=== PATIENT | male | born 1940 | race Caucasian/White ===

== ENCOUNTER 2019-01-17 11:33 | Observation (INO) | payer OTHER, MEDICARE ==
--- NOTE | 2019-01-19 06:22 | PDHPUP ---
History & Physical Update H&P update statement: This history and physical update is based on an assessment of the patient which was completed after admission or registration (within 24 hours), but prior to the surgery/procedure. H&P update: H&P reviewed & patient examined, no change in patient's condition since H&P completed
[2019-01-19] MEDS ORDERED: LISINOPRIL 20 MG TAB PO SCH (09:00)
[2019-01-19] MEDS ORDERED: GABAPENTIN 300 MG CAP PO SCH (09:00)
[2019-01-19] MEDS ORDERED: HYDROCHLOROTHIAZIDE 25 MG TAB PO SCH (09:00)
[2019-01-19] MEDS ORDERED: NAPROXEN SODIUM 220 MG TAB PO SCH (09:00)
[2019-01-19] MEDS ORDERED: amLODIPine BESYLATE 5 MG TAB PO SCH (09:00)
[2019-01-19] MEDS ORDERED: METOPROLOL SUCCINATE XR 50 MG TAB PO SCH (09:00)
[2019-01-19] MEDS ORDERED: ACETAMINOPHEN 500 MG TAB PO ONE (10:27)
[2019-01-19] MEDS ORDERED: GABAPENTIN 300 MG CAP PO ONE (10:27)
[2019-01-19] MEDS ORDERED: ceFAZolin 2 GM/DEXTROSE 100 ML IV ONE (10:27)
[2019-01-19] MEDS ORDERED: LIDOCAINE 1% 2 ML INJ ID PRN (10:28)
[2019-01-19] MEDS ORDERED: LR 1,000 ML IV ONE (10:28)
--- NOTE | 2019-01-19 11:01 | PDANEPAE ---
ANE Past Medical History - Cardiovascular History Hx Hypertension: Yes Hx Arrhythmias: No Hx Chest Pain: No Hx Coronary Artery / Peripheral Vascular Disease: No Hx CHF / Valvular Disease: No Hx Palpitations: No - Pulmonary History Hx COPD: No Hx Asthma/Reactive Airway Disease: No Hx Recent Upper Respiratory Infection: No Hx Oxygen in Use at Home: No Hx Sleep Apnea: No Sleep Apnea Screening Result - Last Documented: Positive - Neurologic History Hx Cerebrovascular Accident: No Hx Seizures: No Hx Dementia: No - Endocrine History Hx Diabetes: No Hypothyroid: No Hyperthyroid: No Obesity: no - Renal History Hx Renal Disorders: No - Liver History Hx Hepatic Disorders: No - Neurological & Psychiatric Hx Hx Neurological and Psychiatric Disorders: Yes Neurological / Psychiatric History Comment: SHARP STABBING PAIN DOWN LEGS - Cancer History Hx Cancer: Yes Cancer History Comment: PROSTATE CA - Congenital Disorder History Hx Congenital Disorders: No - GI History GERD: no Hx Gastrointestinal Disorders: No - Other Health History Other Health History: NONE - Chronic Pain History Chronic Pain: No - Surgical History Prior Surgeries: LTKA. RADIOACTIVE SEEDS ANE Review of Systems Review of Systems: - Exercise capacity Exercise capacity: >=4 METS, limited by disability METS (RN): 4 METS ANE Patient History - Allergies Allergies/Adverse Reactions: No Known Allergies Allergy (Verified 01/03/19 10:49) - Home Medications Home Medications: Atorvastatin Calcium [Lipitor 20 mg (*)] 20 mg PO DAILY 01/03/19 [Last Taken ] Gabapentin [Neurontin 300 MG (*)] 300 mg PO TID 01/03/19 [Last Taken 01/19/19 05 :00] Herbals/Supplements -Info Only 1 ea PO DAILY 01/03/19 [Last Taken 01/13/19] Lisinopril/Hydrochlorothiazide [Zestoretic 20-25 mg Tablet] 1 each PO DAILY 05/16 [Last Taken 01/19/19 07:00] Metoprolol Succinate Xr [Toprol Xl 50 mg (*)] 50 mg PO DAILY 01/03/19 [Last Taken 01/19/19 07:00] Naproxen Sodium [Aleve 220 MG (*)] 220 mg PO TID 01/03/19 [Last Taken 01/19/19 05:00] [place]-3 Fatty Acids [Fish Oil 1000 mg (*)] 1,000 mg PO DAILY 01/03/19 [Last Taken 01/13/19] amLODIPine BESYLATE [Norvasc 5 mg (*)] 5 mg PO DAILY 01/03/19 [Last Taken 07:00] clonIDINE [Catapres (*)] 0.1 mg PO DAILY 01/03/19 [Last Taken 01/19/19 07:00] - Anes Hx Anes Hx: no prior problems - Smoking Hx Smoking Status: Never smoked Marijuana use: No - Alcohol Use Alcohol Use: Rarely - Family Anes Hx Family Anes Hx: neg - N/A Family Hx Anesthesia Complications: none ANE Labs/Vital Signs - Vital Signs Height: 182.88 cm Weight: 83.915 kg ANE Physical Exam - Airway Neck exam: decreased ROM Mallampati Score: Class 2 Mouth exam: normal dental/mouth exam - Pulmonary Pulmonary: no respiratory distress, no rales or rhonchi, clear to auscultation - Cardiovascular Cardiovascular: regular rate and rhythym - ASA Status ASA Status: III ANE Anesthesia Plan Anesthesia Plan: general endotracheal anesthesia Total IV Anesthesia: No
[2019-01-19] MEDS ORDERED: BUPIVACAINE/EPI 0.25% 30 ML SDV ONE (11:18)
[2019-01-19] MEDS ORDERED: CHLORHEXIDINE GLUC HIBICLENS 118 ML BTL TP ONE (11:18)
[2019-01-19] MEDS ORDERED: THROMBIN (BOVINE) 5,000 UNIT VIAL TP ONE (11:18)
[2019-01-19] MEDS ORDERED: BACITRACIN 50,000 UNITS/10 ML SYR IRR ONE (11:19)
[2019-01-19] MEDS ORDERED: ONDANSETRON DISINTEGRATING 4 MG TAB PO PRN (11:55)
[2019-01-19] MEDS ORDERED: diphenhydrAMINE 25 MG CAP PO PRN (11:55)
[2019-01-19] MEDS ORDERED: oxyCODONE IR 5 MG TAB PO PRN (11:55)
[2019-01-19] MEDS ORDERED: MAGNESIUM HYDROXIDE 30 ML UDCUP PO PRN (11:55)
[2019-01-19] MEDS ORDERED: LACTULOSE 20 GM/30 ML UDCUP PO PRN (11:55)
[2019-01-19] MEDS ORDERED: HYDROmorphONE/DILAUDID 1 MG/ML INJ IVP PRN (11:55)
[2019-01-19] MEDS ORDERED: ONDANSETRON 4 MG/2 ML VIAL IVP PRN ×2 (11:55→13:48)
[2019-01-19] MEDS ORDERED: BISACODYL 10 MG SUPP PR PRN (11:55)
[2019-01-19] MEDS ORDERED: METHOCARBAMOL 750 MG TAB PO PRN (11:55)
[2019-01-19] MEDS ORDERED: POLYETHYLENE GLYCOL 3350 17 GM PKT PO PRN (11:55)
[2019-01-19] MEDS ORDERED: NS 1,000 ML IV SCH (12:00)
[2019-01-19] MEDS ORDERED: PROPOFOL 200 MG/20 ML VIAL ONE (12:21)
[2019-01-19] MEDS ORDERED: ONDANSETRON 4 MG/2 ML VIAL ONE (12:21)
[2019-01-19] MEDS ORDERED: fentaNYL 100 MCG/2 ML INJ ONE (12:21)
[2019-01-19] MEDS ORDERED: DEXAMETHASONE 4 MG/ML VIAL ONE (12:23)
[2019-01-19] MEDS ORDERED: LIDOCAINE 2% 5 ML SDV ONE (12:23)
[2019-01-19] MEDS ORDERED: PHENYLEPHRINE HCL 100 MCG/ML SYR ONE ×2 (12:44→13:16)
[2019-01-19] MEDS ORDERED: ePHEDrine SULFATE 25 MG/5 ML SYR ONE ×2 (12:57→13:09)
[2019-01-19] MEDS ORDERED: KETOROLAC 30 MG/1 ML SDV ONE (13:18)
[2019-01-19] MEDS ORDERED: PHENYLEPHRINE 10 MG/ML SDV ONE ×2 (13:41→14:04)
[2019-01-19] MEDS ORDERED: HYDROCODONE/APAP 5/325 TAB PO PRN (13:48)
[2019-01-19] MEDS ORDERED: fentaNYL 100 MCG/2 ML INJ IVP PRN (13:48)
[2019-01-19] MEDS ORDERED: PROMETHAZINE HCL 25 MG/ML INJ IVP PRN (13:48)
[2019-01-19] MEDS ORDERED: NALOXONE HCL 0.4 MG/ML INJ IVP PRN (13:48)
[2019-01-19] MEDS ORDERED: LR 500 ML IV PRN (13:48)
[2019-01-19] MEDS ORDERED: DIAZEPAM 10 MG/2 ML SYR IVP PRN (13:48)
[2019-01-19] MEDS ORDERED: PHENYLEPHRINE HCL 100 MCG/ML SYR IVP PRN (13:48)
[2019-01-19] MEDS ORDERED: ACETAMINOPHEN 500 MG TAB PO PRN (13:48)
[2019-01-19] MEDS ORDERED: ceFAZolin 2 GM/DEXTROSE 100 ML IV SCH ×2 (14:00→19:00)
[2019-01-19] MEDS ORDERED: PROPOFOL/EMULSION 500 MG/50 ML BOTTLE IV ONE (14:07)
[2019-01-19] MEDS ORDERED: REMIFENTANIL HCL 1 MG VIAL ONE (14:07)
--- NOTE | 2019-01-19 15:29 | POSTOPPROG ---
Post Op Note Date of Operation: 01/19/19 Surgeon: Afshin Chance Relay Dispatcher: ROGER Rodriguez Anesthesiologist: Tacos Anesthesia: GET(General Endotracheal), Local (Specify) Pre-op Diagnosis: Lumbar stenosis L3-L5 Post-op Diagnosis: Lumbar stenosis L3-L5 Indication: BLE pain, LBP Procedure: L3-L5 laminectomy Findings: see op report Inf/Abcess present in the surg proc area at time of surgery?: No Depth: Deep Incisional (Fascial) EBL: 100-500 Total fluids administered: see anesthesia record Complications: none Bowel Protocol: Yes Clean Closure Performed: Yes
--- NOTE | 2019-01-19 15:33 | SOAPPROG ---
SOAP Progress Note Assessment/Plan: Post Op Visit: S: Awake and alert. NAD. Pt with expected lower back pain O: AFVSS/PERRLA/EOMI no droop CN 2-12 grossly intact +lt touch 5/5 BUE/BLE = CDI A/P: 78 yo male that is s/p L3-L5 lami -orders in place -call with any questions or concerns -no bending or twisting -take medications as directed -pt seen by Dr Chance -PT/OT in am Objective: Vital Signs Temp Pulse Resp BP Pulse Ox 36.7 C 77 16 125/87 H 95 01/19/19 11:28 01/19/19 11:28 01/19/19 11:28 01/19/19 11:28 01/19/19 11:28 ICD10 Worksheet Patient Problems: Problems Problem Status Onset Lumbar radicular pain Acute Lumbar stenosis Acute - ICD10 Problem Qualifiers (1) Lumbar stenosis Qualifiers: Neurogenic claudication status: with neurogenic claudication Qualified Code (s): M48.062 - Spinal stenosis, lumbar region with neurogenic claudication (2) Lumbar radicular pain
--- NOTE | 2019-01-19 15:38 | POSTANESTH ---
Post Anesthetic Evaluation Cardiovascular Status: Similar to Pre-Op Cond Respiratory Status: Normal, Stable Level of Consciousness/Mental Status: Mildly Sleepy, Arousable Pain Control: Adequate, Prn Tx Ordered Nausea/Vomiting Control: Adequate, Prn Tx Ordered Complications Possibly Related to Anesthesia: None Noted
[2019-01-19] MEDS ORDERED: AMIODARONE HCL 100 ML IV ONE (18:13)
[2019-01-19] MEDS: ACETAMINOPHEN 500 MG TAB PO SCH ×2 (18:26→21:31)
[2019-01-19] MEDS: ATORVASTATIN CALCIUM 20 MG TAB PO SCH (18:26)
[2019-01-19] MEDS: GABAPENTIN 300 MG CAP PO SCH ×2 (18:27→21:31)
[2019-01-19] MEDS: NAPROXEN SODIUM 220 MG TAB PO SCH ×2 (18:27→21:31)
--- NOTE | 2019-01-19 18:43 | GOP ---
[f rep st] OPERATIVE REPORT DATE OF OPERATION: 01/19/2019 SURGEON: Elmo Chance MD NEUROSURGEON: Jonny Chance MD. COSMETIC SALES: Hugo Rodriguez PA-C. PREOPERATIVE DIAGNOSIS: Severe spinal stenosis L3-4, L4-5; disk herniation, L3-4; neurogenic claudic ation; bilateral lumbosacral radiculopathy. POSTOPERATIVE DIAGNOSIS: Severe spinal stenosis L3-4, L4-5; disk herniation, L3-4; neurogenic claudi cation; bilateral lumbosacral radiculopathy. PROCEDURE PERFORMED: An L3-4, L4-5 laminectomy with bilateral medial facetectomies, bilateral recess decompressions, both levels with a microdiskectomy at L3-4 (74041, 44220); microscope. FINDINGS: ESTIMATED BLOOD LOSS: 75 mL. INDICATIONS: The patient is a 78-year-old with terrible pain in his back radiating down both legs, r elatively symmetric, who had an MRI that demonstrated multilevel findings with stenosis at L2-3, L3-4 , L4-5 and really no significant stenosis at L5-S1. He had critical stenosis at L3-4 and a large sub ligamentous disk protrusion there, as well as ligamentum flavum and facet arthropathy. He had severe spinal stenosis at L4-5 as well and a spondylolisthesis there. I suggested a 2-level decompression and the possibility of needing a larger surgery was discussed, but I thought a simple decompression a lone would suffice. The risk of nerve injury and continued symptoms were discussed. He knew there w as a chance surgery would fail to eliminate his discomfort, but he did want to proceed. DESCRIPTION OF PROCEDURE: The patient was taken to the operating room and placed in the supine posit ion. General anesthesia was begun. He was flipped prone onto the [place] frame. Care was taken to p ad all points of contact. His back was sterilely prepped and draped in the usual fashion. We made a 3 cm incision above the L3-4, L4-5 interspace. The subcutaneous tissue was dissected using Bovie ca utery down through the fascia and a subperiosteal dissection was made down to L3-4, L4-5 lamina. A l ocalizing x-ray was taken. We removed the complete L4 spinous process. We removed the inferior L3 s pinous process. The operating microscope was introduced. We completely removed the lamina of L4. W e removed the entire caudal sulma-lamina of L3 with bilateral decompressions at that level, but we pre served the rostral arch of L3. We removed the rostral aspects of the L5 lamina. We worked under the scope to perform bilateral recess and central decompressions. There was absolutely amazingly critic al spinal stenosis at L3-4 and this took considerable time to achieve decompression. We worked our w ay down the lateral gutters of the spinal canal to the midportion of the bilateral L5 pedicles and we decompressed flush with the pedicles and worked our way up above the L4-5 facet joint, undercutting the facet joint and performing a foraminotomy on each side. We then followed the pars interarticular is rostrally to the L4 pedicle and decompressed the L3-4 level. On the right at L4-5, the facet arth ropathy was very stuck to the dura and the dissection was extremely difficult, tedious and time consu mary alice, but we were able to eventually free all this material and get a great decompression. At L3-4, we got a great decompression. We then swept the L3 nerve root medial from the left side and there wa s a large subligamentous disk protrusion that we removed. We were able to squeeze a large amount of disk material out from underneath the anulus and the posterior longitudinal ligament at L3-4. It cam e out like toothpaste. We removed all this material and got a great decompression at that level. We then irrigated the L3-4 disk space with antibiotic saline solution and got several additional pieces of disk out of the disk itself. We then irrigated the entire incision with a large amount of antibi otic saline. We then closed the incision in multiple layers using Vicryl sutures. A running PDS was placed in the skin itself. The patient was reversed from anesthesia, extubated and transferred to [facility] recovery room in stable condition. There were no complications.01/18/2019 COMPLICATIONS: None. /[id number]/MODL
[2019-01-19] MEDS: ceFAZolin 2 GM/DEXTROSE 100 ML IV SCH (21:14)
[2019-01-19] MEDS: SENNOSIDES/DOCUSATE SODIUM TAB PO SCH (21:30)
[2019-01-19] MEDS: FAMOTIDINE 20 MG TAB PO SCH (21:31)
--- NOTE | 2019-01-20 00:19 | GCON ---
[f rep st] CONSULTATION DATE OF CONSULTATION: 01/19/2019 CHIEF COMPLAINT: Abnormal heart rhythm after surgery. HISTORY OF PRESENT ILLNESS: The patient is a 78-year-old man with a history of hypertension, as well as lumbar stenosis and a remote history of prostate cancer, who presented today for lumbar spine maria julio cesar under the care of Dr. Jonny Chance. At the time of his initial evaluation in the hospital, he was noted to be in normal sinus rhythm, but during the course of the operation, the patient developed at rial fibrillation and I was asked to see the patient in consultation because of the development of at rial fibrillation with controlled ventricular response. The patient was being monitored by Dr. Ilene guadarrama. At the time of my evaluation, the patient is asymptomatic and does not have chest pain, pressure, tig htness, shortness of breath, and is lying comfortably flat in the bed without clinical symptoms of co ncern. PAST MEDICAL HISTORY: Significant for: 1. Hypertension. 2. Prostate cancer, status post radioactive seed implant. 3. Lumbar spinal stenosis. 4. History of orthopedic surgeries in the past and a hernia repair. 5. The patient has no prior cardiac history. SOCIAL HISTORY: Pertinent for the fact he worked at [employer] until 1990, is retired since that ti fl. He is active around the house and walks his dog twice a day to a local [place] without clinical sym ptoms of chest pain, pressure, tightness, or shortness of breath. He does not abuse alcohol or illic it drugs. He does not smoke or abuse tobacco products. A 10-point review of systems is reviewed and is otherwise negative. PHYSICAL EXAMINATION: VITAL SIGNS: Blood pressure 119/77, pulse 76 and irregularly irregular, respi rations are 16 and unlabored. Oxygen saturation 97% on 2 L by nasal cannula. HEENT: His eyes revea l that his pupils are equal, round, reactive to light. Extraocular motions intact. His mouth reveal s moist mucous membranes. NECK: Reveals a normal exam without evidence of carotid bruits. HEART: Reveals an irregularly irregular rhythm without an appreciable murmur in the anterior precordium. CAROLINE NGS: He has bilaterally equal breath sounds. He is lying recumbent in the bed, is flat, and without respiratory distress. EXTREMITIES: Warm, dry, well perfused, without significant peripheral edema. DIAGNOSTIC STUDIES: His EKG reveals atrial fibrillation with nonspecific T wave abnormalities and fl attening. There is no evidence of ischemia or an injury pattern on the EKG. LABORATORY STUDIES: Reveal white count of 6.04, H and H of 15.5 and 45.5, a platelet count of 247. Sodium is 137, potassium 4.1, BUN and creatinine of 14 and 0.7, glucose is 95 with a calcium of 9.8. IMPRESSION/PLAN: The patient has paroxysmal and sustained atrial fibrillation without a prior histor y of this same. He is a usual patient of Dr. Garcia in [place], and is on 4 medications for his hype rtension including amlodipine 5 mg p.o. daily, clonidine 0.1 mg daily, hydrochlorothiazide 25 mg joann y, lisinopril 20 mg daily, and metoprolol succinate 50 mg p.o. daily. He is not known to be allergic to other medications. The patient appears at paroxysmal and sustained atrial fibrillation as a colin operative event which is of unclear significance. The patient has never had clinical symptoms sugges tive of prior atrial fibrillation and this is a new diagnosis to him. He has not had a prior cardiac workup, especially in the recent past. Our plan will be to give him a single dose of IV amiodarone and wait 30 minutes. If he has not converted to normal sinus rhythm with that strategy, we would giv e a second dose of the medication to see if this could help him return to normal rhythm overnight. C ertainly, we will want to obtain an echocardiogram in the morning to evaluate the structural function of his heart, as well as rule out valvular heart disease as a potential cause for the patient's atri al fibrillation. Evaluation of his heart size and LV function, as well as LV thickness will also be helpful. The patient should have a blood test with a TSH to evaluate for hypo or hyperthyroidism as a potential contributing factor, although this would be unlikely in the current clinical presentation . I have explained to the patient and his that the usual complication of atrial fibrillation is a risk of stroke. He certainly has risk factors for that with age greater than 75, giving 2 points on the CHADS-VASc score, along with hypertension giving another point, so his CHADS-VASc calculates o ut to be a 3, which usually results in a standard recommendation for full-dose anticoagulation to be given indefinitely in patients with this type of profile who are not at bleeding risk. Unfortunately, the patient has just undergone a back surgery and of course, the use of full-dose anti coagulation would be contraindicated presently because of the risk of a spinal cord hematoma and para lysis related to that problem. I think if he is unable to convert to normal rhythm with IV amiodaron e overnight, we could consider a MAT guided cardioversion to try to get him back in normal rhythm as quickly as possible. I do not think that is indicated this evening given the fact that the patient i s clinically comfortable and is not in heart failure, does not have angina or other problems at the p resent time. /[id number]/MODL
[2019-01-20] MEDS: ceFAZolin 2 GM/DEXTROSE 100 ML IV SCH (05:18)
[2019-01-20] MEDS: ACETAMINOPHEN 500 MG TAB PO SCH ×2 (05:57→14:07)
--- NOTE | 2019-01-20 07:19 | NEUSURGPN ---
Date of Surgery: 01/19/19 Post Op Day: 1 Assessment/Plan: Assessment: 78 yo male that is s/p L3-L5 lami that has post op Afib now Plan: -pt states that he has some lower back pain, his legs feel great -pt is in Afib now and cardiology working on likely will have cardioversion today -orders in place -call with any questions or concerns -no bending or twisting -no lifting more than 10-15 lbs -take medications as directed -pt seen by Dr Chance -PT/OT this am Subjective: Awake and alert. NAD. Eating/drinking and voiding. No f/c/n/v/d. Pt with mild lower back pain. Pt states that legs feel great Objective: AFVSS/PERRLA/EOMI no droop CN 2-12 grossly intact +lt touch 5/5 BUE/BLE = CDI Neuro Check Frequency: per routine Urinary Catheter in Place: No - Physician Discussed Patient with : Robson Patient Seen by : Robson Neurosurgery Physical Exam - Vitals, I&O, Labs I and O 01/19/19 01/20/19 01/21/19 05:59 05:59 05:59 Intake Total 2049 Output Total 50 Balance 1999 Weight 83.915 kg Intake: Oral (ml) 350 IV Intake (ml) 1500 IV Infused (ml) 200 ceFAZolin 2 GM/DEXTROSE 200 100 ml @ 200 mls/hr IV Q8H DON Rx#:[id number] Output: Estimated Blood Loss (ml) 50 Other: Number of Voids Toilet 1 Vital Signs Temp Pulse Resp BP Pulse Ox 36.6 C 93 18 117/75 91 L 01/20/19 04:00 01/20/19 04:00 01/20/19 04:00 01/20/19 04:00 01/20/19 04:00 ICD10 Worksheet Patient Problems: Problems Problem Status Onset Lumbar radicular pain Acute Lumbar stenosis Acute - ICD10 Problem Qualifiers (1) Lumbar stenosis Qualifiers: Neurogenic claudication status: with neurogenic claudication Qualified Code (s): M48.062 - Spinal stenosis, lumbar region with neurogenic claudication (2) Lumbar radicular pain
[2019-01-20] MEDS: ATORVASTATIN CALCIUM 20 MG TAB PO SCH (08:56)
[2019-01-20] MEDS: GABAPENTIN 300 MG CAP PO SCH ×2 (08:57→13:23)
[2019-01-20] MEDS: FAMOTIDINE 20 MG TAB PO SCH (08:57)
[2019-01-20] MEDS: SENNOSIDES/DOCUSATE SODIUM TAB PO SCH (08:57)
[2019-01-20] MEDS: NAPROXEN SODIUM 220 MG TAB PO SCH ×2 (08:58→13:23)
[2019-01-20] MEDS ORDERED: amLODIPine BESYLATE 5 MG TAB PO SCH (09:00)
[2019-01-20] MEDS ORDERED: LISINOPRIL 20 MG TAB PO SCH (09:00)
[2019-01-20] MEDS ORDERED: METOPROLOL SUCCINATE XR 50 MG TAB PO SCH (09:00)
[2019-01-20] MEDS ORDERED: HYDROCHLOROTHIAZIDE 25 MG TAB PO SCH (09:00)
--- NOTE | 2019-01-20 10:27 | CPEKG ---
Test Reason : OPEN Blood Pressure : / mmHG Vent. Rate : 093 BPM Atrial Rate : 149 BPM P-R Int : 162 ms QRS Dur : 099 ms QT Int : 436 ms P-R-T Axes : 000 017 -13 degrees QTc Int : 543 ms Atrial fibrillation Borderline T abnormalities, diffuse leads Borderline prolonged QT interval Confirmed by Roe Hayes ([id number]) on 01/20/2019 10:27:09 AM Referred By: Afshin LE Confirmed By:Roe Hayes
--- NOTE | 2019-01-20 10:32 | PDCARPN ---
Cardiology Progress Note Chief Complaint: atrial fibrillation Assessment/Plan: Assessment:Rubens is a 78-year-old male who presented for a surgery under the care of Dr. Chance and shortly after anesthesia induction the patient went into atrial fibrillation and remained in the rhythm throughout the remainder of the case. Plan: Elective MAT guided cardioversion today as he is currently not an anticoagulation candidate given spine surgery. 01/20/19 10:31 01/20/19 14:20 Subjective: I feel great. Reviewed/Discussed With: family, hospitalist, multidisciplinary team Time Spent with Patient: greater than 25 minutes Time Spent with Patient: Greater than 25 minutes spent on this patients care, greater than 50% of time spent counseling, educating, and coordinating care regarding the above mentioned plan. Objective: Vital Signs (8 Hrs) Temp Pulse Resp BP Pulse Ox 01/20/19 04:00 36.6 C 93 18 117/75 91 L Intake/Output (24 Hrs) 01/19/19 01/20/19 01/21/19 05:59 05:59 05:59 Intake Total 2050 Output Total 50 Balance 1999 Intake: Oral (ml) 350 IV Intake (ml) 1500 IV Infused (ml) 200 ceFAZolin 2 GM/DEXTROSE 200 100 ml @ 200 mls/hr IV Q8H [facility] Rx#:[id number] Output: Estimated Blood Loss (ml) 50 Other: Weight 83.915 kg Number of Voids Toilet 1 EKG: Atrial fibrillation vs left atrial flutter with controlled ventricular response. Telemetry: Atrial fibrillation with controlled response - Physical Exam Constitutional: healthy appearing, no apparent distress Eyes: PERRL, EOMI, anicteric sclera Ears, Nose, Mouth, Throat: moist mucous membranes Cardiovascular: irregularly irregular Respiratory: clear to auscultate bilat Gastrointestinal: normoactive bowel sounds, no tenderness Neurologic: AAOx3 Psychiatric: cooperative, interactive ICD10 Worksheet Patient Problems: Problems Problem Status Onset Lumbar stenosis Acute Lumbar radicular pain Acute
[2019-01-20] MEDS ORDERED: NS 1,000 ML IV ONE (11:04)
[2019-01-20] MEDS ORDERED: ATROPINE SULFATE 1 MG/10 ML SYR IVP ONE (11:04)
--- NOTE | 2019-01-20 15:03 | ECHO ---
[email or web address] [address] Main: [phone] Echocardiography Examination Transthoracic Name: PATT CHRISTIAN MR#: [id number] Study Date: 01/20/2019 Study Time: 08:21 AM Date of : 1940 Age: 78 year(s) Height: 182.9 cm (72 in.) Weight: 83.92 kg (185 lb.) BSA: 2.06 m2 Gender: Male Examination: Echo Contrast: Image Quality: Rhythm: Atrial fibrillation Heart Rate: 90 bpm BP: 135 mmHg/87 mmHg Indication: New onset A-fib Procedure Staff Referring Physician: Heavy Mobile Equipment Operator: Donovan Villa RDCS Reading Physician: Neeta Harp MD Requesting Provider: Ordering Physician: Neeta Harp MD Indication: New onset A-fib Measurements Chambers AV/MV Label Value Normal Value Label Value Normal Value LVOT Vmax 0.81 m/s (0.7m/s - 1.1m/s) AV PGmax 7 mmHg LVOTd 2 cm (1.9cm - 2.1cm) AV PGmean 4 mmHg LVOT VTI 16.3 cm (18cm - 22cm) AV Vmax 1.32 m/s LVDd, 2D 5.3 cm (4.2cm - 5.9cm) JIM (Vmax) 1.9 cm2 LVDs, 2D 3.3 cm (2.1cm - 4cm) JIM (VTI) 2.1 cm2 IVSd, 2D 1 cm (0.6cm - 1.1cm) MV E Vmax 1.1 m/s LVPWd, 2D 1.2 cm (0.6cm - 1cm) MV E/E' lateral 8.9 LVEF, 2D 68 % (54% - 74%) MV E/E' septal 9.2 (0.45 - 1.25) LVOT PGmean 1 mmHg MV E' septal 0.12 m/s LVOT Vmean 0.45 m/s MV E' lateral 0.12 m/s RVDd, 2D 2 cm (1.9cm - 3.8cm) MV E/E' mean 9.17 LA Volume, BP 71 ml (18ml - 58ml) MV E' mean 0.12 m/s LADs, 2D 3.9 cm (3cm - 4cm) TV/PV LAESV index, BP 34.5 ml/m2 Label Value Normal Value Additional Vessels PV PGmax 3 mmHg Label Value Normal Value PV Vmax, Caliper 0.83 m/s (0.6m/s - 0.9m/s) AoRoot, MM 3.2 cm (2.2cm - 3.7cm) Patient: PATT CHRISTIAN Study Date: 01/20/2019 Page 1 of 2 08:21 AM Conclusions 1. The left ventricle is normal in size and systolic function. Mild concentric LVH. Ejection fraction is estimated at 65%. 2. The right ventricle is normal in size and systolic function. 3. Borderline left atrial dilation 4. No significant valvular disease. 5. Unable to estimate PA systolic pressure. 6. No previous echo Findings Left Ventricle: Left ventricle is normal in size. Normal global systolic left ventricular function. EF range is estimated at 60 % - 65 %. There is mild concentric left ventricular hypertrophy. There are no regional wall motion abnormalities. Unable to assess Diastolic Dysfunction due to atrial fibrillation/a flutter. Right Ventricle: Normal size right ventricle. Right ventricular systolic function is normal. Left Atrium: The left atirum is borderline dilated. Right Atrium: The right atrium is normal in size. Mitral Valve: Mitral valve appears structurally normal. No significant mitral regurgitation. Aortic Valve: Aortic leaflets are normal in appearance and function. No significant aortic valve regurgitation. Aortic leaflets exhibit no calcification. The aortic valve is trileaflet. Tricuspid Valve: Tricuspid valve leaflets are normal in appearance and function. No significant tricuspid regurgitation. Pulmonic Valve: Pulmonic leaflets are normal in appearance and function. Aorta: The aorta is normal. The aortic root size in M-mode measures 3.2 cm. Aorta Measurements AoRoot, MM is 3.2 cm. Pericardium: No pericardial effusion. Exam Details Procedure Ordered: Echo (No Signature Object) Patient: PATT CHRISTIAN Study Date: 01/20/2019 Page 2 of 2 08:21 AM [id number]
[2019-01-20] MEDS ORDERED: MIDAZOLAM 2 MG/2 ML VIAL ONE (16:14)
[2019-01-20] MEDS ORDERED: fentaNYL 100 MCG/2 ML INJ ONE (16:14)
[2019-01-20] MEDS ORDERED: ETOMIDATE 40 MG/20 ML INJ ONE (16:15)
--- NOTE | 2019-01-20 17:07 | PDPROPOC ---
Sedation Plan of Care Sedation Plan of Care: vital signs stable, mental status noted, patient educated of risks, benefits, alternatives, patient can tolerate sedation ASA Classification: ASA 3 Planned drugs: fentanyl, other (Versed and Etomidate) Mallampati Score: Class 2 Mallampati Reference Image: Patient passed 3-3-2 rule?: No
--- NOTE | 2019-01-20 17:12 | PDTEE1 ---
MAT Cardioversion Procedure Procedure: electrical cardioversion, transesophageal echo Indications: atrial fibrillation Consent: signed and in chart Anticoagulation: other (NONE) Procedural Details: PROCEDURE: Elective MAT and DC cardioversion. DATE OF PROCEDURE: 01/20/2019 COMPLICATIONS: None HIDE INSPECTOR: Tico Gregorio MD INDICATION AND APPROPRIATE USE CRITERIA: Atrial Fibrillation PROCEDURE IN DETAIL: After informed consent was obtained and n.p.o. status was confirmed, the oropharynx was anesthetized with 1% cetacaine topical solution. The patient was given 6 mg of Versed as well as Fentanyl 100 mcg intravenously for sedation prior to the MAT. The MAT probe was advanced in to the patient's esophagus and the ultrasound revealed no evidence of left atrial clot or thrombus. (Please see the full report under separate cover.) We proceeded with elective DC cardioversion, the pads were placed in the anterior and posterior position. The patient was given 8mg Etomidate for deep sedation prior to being cardioverted. 300 J of biphasic synchronized counter shock was delivered. The patient was successfully returned to normal sinus rhythm with occasional PACs and intermittent junctional escape. FINAL IMPRESSION: Successful MAT guided elective DC cardioversion without immediate complication. The patient recently had spinal surgery and should not be on anticoagulation therapy for at least 3 weeks. The patient is to avoid caffeine, alcohol and strenuous exercise for the next 3 weeks. Synchronized cardioversion attempt #1: 300J Results: normal sinus rhythm Conclusions: successful MAT cardioversion Patient Problems: Problems Problem Status Onset Lumbar stenosis Acute Lumbar radicular pain Acute
[2019-01-20 18:32] VITALS: BP 147/79
--- NOTE | 2019-01-21 08:31 | ASMTLACE ---
LACE Length of stay for Answers: 1 day current admission Acuity / Level of Answers: Yes Care: Did the patient have an inpatient admission? Comorbidities - select Answers: Any tumor (including all that apply lymphoma or leukemia) Other Notes: HTN # of Emergency department Answers: 0 visits in the last 6 months Score: 7 Date Signed: 01/21/2019 08:30 AM Electronically Signed By:Maricruz Bell RN
--- NOTE | 2019-01-21 08:34 | ASDISCHSUM ---
Discharge Information Plan Status:Home with No Needs Medically Cleared to Leave:01/20/2019 Discharge Date:01/20/2019 08:35 PM CM D/C Disposition:Home, Routine, Self-Care ADT D/C Disposition:Home, Routine, Self-Care Projected Discharge Date:01/20/2019 08:35 PM Transportation at D/C: Discharge Delay Reason: Follow-Up Date:01/20/2019 08:35 PM Discharge Slot: Final Diagnosis: Placement Information Patient Contact Information Contact Name:JASON Relationship: Address:[address] Work Phone: City:[place] Alternate Phone: [facility]/Zip Code:[place] [address] Email: Financial Information Financial Class:Medicare Primary Plan Desc:MEDICARE OUTPATIENT Primary Plan Number:[id number] Secondary Plan Desc:ROSINA/TESSA SUPPLEMENT Secondary Plan Number:[id number] Assessment Information LACE LACE Length of stay for Answers: 1 day current admission Acuity / Level of Answers: Yes Care: Did the patient have an inpatient admission? Comorbidities - select Answers: Any tumor (including all that apply lymphoma or leukemia) Other Notes: HTN # of Emergency department Answers: 0 visits in the last 6 months Score: 7 Date Signed: 01/21/2019 08:30 AM Electronically Signed By:Maricruz Bell RN [facility] CM Progress Note CM Note CM Note Notes: 01/20/19 Pt admitted 01/19/19 post surgery for spinal stenosis. Reviewed chart and met with pt. Pt lives at home with Lilian [phone]. No other family lives nearby. Couple does not have children. Pt states that he is independent at home, other than recently hiring [employer] service. Pt confirmed PCP is Zhang Garcia [phone]. Case management D/C plan: Anticipating independent to home with outpatient rehab. Pt states will drive him to rehab. Case management available if needs change. Date Signed: 01/20/2019 03:38 PM Electronically Signed By:Carole Albrecht Intervention Information Intervention Type:*JOE-Signed Date of Service:01/20/2019 10:10 AM Patient Type:Observation Staff Member:Janis Farnsworth Hours: Discipline: Severity: Comment:
--- NOTE | 2019-01-21 08:34 | ASMTCMCOM ---
CM Note CM Note Notes: Pt discharged independent. Date Signed: 01/21/2019 08:33 AM Electronically Signed By:Maricruz Bell RN
--- NOTE | 2019-01-21 13:15 | CPEKG ---
Test Reason : OPEN Blood Pressure : / mmHG Vent. Rate : 069 BPM Atrial Rate : 169 BPM P-R Int : 184 ms QRS Dur : 093 ms QT Int : 409 ms P-R-T Axes : 086 011 177 degrees QTc Int : 438 ms Atrial flutter Nonspecific T abnormalities, lateral leads Confirmed by Roe Hayes ([id number]) on 01/21/2019 1:15:42 PM Referred By: Afshin LE Confirmed By:Roe Hayes
--- NOTE | 2019-01-21 13:18 | CPEKG ---
Test Reason : OPEN Blood Pressure : / mmHG Vent. Rate : 063 BPM Atrial Rate : 064 BPM P-R Int : 216 ms QRS Dur : 101 ms QT Int : 454 ms P-R-T Axes : 067 036 067 degrees QTc Int : 465 ms Sinus rhythm Borderline prolonged MD interval Borderline T abnormalities, lateral leads Confirmed by Roe Hayes ([id number]) on 01/21/2019 1:18:19 PM Referred By: Afshin LE Confirmed By:Roe Hayes
--- NOTE | 2019-01-21 15:37 | ECHO ---
[email or web address] [place] [id number] Main: [phone] Echocardiography Examination Transesophageal Name: PATT CHRISTIAN MR#: [id number] Study Date: 01/20/2019 Study Time: 04:22 PM Date of : 1940 Age: 78 year(s) Height: ( ) Weight: ( ) BSA: Gender: Male Examination: MAT Contrast: Image Quality: Rhythm: Heart Rate: BP: / Indication: Pre Cardioversion Procedure Staff Referring Physician: [employer] Supervisor: Donovan Villa RDCS Reading Physician: Tico Gregorio MD Requesting Provider: Ordering Physician: Tico Gregorio MD Indication: Pre Cardioversion Conclusions The patient underwent MAT to rule out left atrial thrombus prior to a DC cardioversion performed for paroxysmal and sustained atrial fibrillation that was temporally related to spine surgery. The patient is not a candidate for full dose anticoagulation because of the recent spine surgery. Follow up with Cardiology to begin full dose anticoagulation as soon as Neurosurgery team deems that to be appropriate. Follow up echo to track the status of the mitral valve in 3 -5 years sooner if symptoms warrant. Findings Left Ventricle: Proceeded with successful elective DC cardioversion.. Normal global systolic left ventricular function. Left Atrium Appendage: Good color flow doppler in the left atrial appendage. No thrombus is identified. Mitral Valve: Mild mitral regurgitation. Exam Details Procedure Ordered: MAT (No Signature Object) Patient: PATT CHRISTIAN Study Date: 01/20/2019 Page 1 of 2 04:22 PM Patient: PATT CHRISTIAN Study Date: 01/20/2019 Page 2 of 2 04:22 PM [id number]
[2019-01-22] MEDS ORDERED: ENOXAPARIN 40 MG/0.4 ML SYR SC SCH (09:00)
== END 2019-01-20 20:35 | disposition home or self-care (01) ==
LOC: F3N 01-19 10:12 → F2W 01-19 17:50
PROVIDERS: ADMIT Neurological Surgery; ATTEND Neurological Surgery
PROC: 01NB0ZZ Release Lumbar Nerve, Open Approach (ICD-10-PCS; principal; 2019-01-19 12:15)
PROC: 5A2204Z Restoration of Cardiac Rhythm, Single (ICD-10-PCS; 2019-01-20)
PROC: B245ZZ4 Ultrasonography of Left Heart, Transesophageal (ICD-10-PCS; 2019-01-20)
DX: M48.062 Spinal stenosis, lumbar region with neurogenic claudication (principal); M51.16 Intervertebral disc disorders with radiculopathy, lumbar region; I97.88 Other intraoperative complications of the circulatory system, not elsewhere classified; I48.91 Unspecified atrial fibrillation; I10 Essential (primary) hypertension; Z85.46 Personal history of malignant neoplasm of prostate; Z96.652 Presence of left artificial knee joint
CPT/HCPCS: 63047; 63048; 76000; 92960; 93005; 93306; 93312; 97161; 97166; 97535; J0282; J0690; J1100; J1885; J2250; J2370; J2405; J2704; J3010